=== PATIENT | female | born 1945 | race Caucasian/White ===

== ENCOUNTER 2024-10-20 11:02 | Inpatient (IN) | payer MEDICARE, OTHER ==
[~2024-10-20] VITALS: Ht 167.6 cm; Wt 59.1 kg
[2024-10-20] MEDS ORDERED: NS 1,000 ML IV SCH ×3 (11:15→18:55)
[2024-10-20] MEDS ORDERED: FentaNYL Citrate 50 MCG/ML 2 ML Injection IV PRN ×2 (11:15→18:55)
[2024-10-20] MEDS ORDERED: HYDROmorphone HCl/Pf 1MG SYR IV ONE (12:10)
[2024-10-20] MEDS ORDERED: HYDROmorphone HCl/Pf 1MG SYR IV PRN (15:30)
[2024-10-20] MEDS ORDERED: Ondansetron HCl 2 MG / ML 2ML Vial IV PRN ×2 (16:25→18:55)
[2024-10-20] MEDS ORDERED: Acetaminophen 500 MG Tab PO ONE (16:25)
[2024-10-20 16:53] LABS: BASOPHILS ABSOLUTE AUTO 0.05 K/mm3 (0.00-0.23); BASOPHILS PERCENT AUTO 1 % (0-2); EOSINOPHILS ABSOLUTE AUTO 0.01 K/mm3 (0.00-0.68); EOSINOPHILS PERCENT AUTO 0 % (0-6); Hematocrit 27.4 % (33.0-51.0); Hemoglobin 8.5 g/dL (11.5-16.0); IMMATURE GRAN ABSOLUTE AUTO 0.03 K/mm3 (0.00-0.10); IMMATURE GRAN PERCENT AUTO 0 % (0-1); LYMPHOCYTES PERCENT AUTO 14 % (21-46); MONOCYTES ABSOLUTE AUTO 0.76 K/mm3 (0.16-1.47); MONOCYTES PERCENT AUTO 7 % (4-13); Mean Corpuscular HGB 25.2 pg (26.0-34.0); Mean Corpuscular Volume 81 fL (80-100); Mean Platelet Volume 9.1 fL (9.1-12.4); NEUTROPHILS ABSOLUTE AUTO 8.41 K/mm3 (1.96-9.15); NEUTROPHILS PERCENT AUTO 78 % (41-73); Platelet Count 343 K/mm3 (150-400); RDW Coefficient Variation 16.9 % (11.7-14.2); RDW Standard Deviation 49.1 fL (35.1-46.3); Red Blood Cell Count 3.37 M/mm3 (3.80-5.20); White Blood Cell Count 10.76 K/mm3 (4.00-11.30)
[2024-10-20 17:18] LABS: Albumin, Blood 2.5 g/dL (3.4-5.0); Albumin/Globulin Ratio 0.6 (0.8-1.8); Bilirubin, Total 0.6 mg/dL (0.1-1.0); Bun/Creatinine Ratio 20.3 (12.0-20.0); Calcium, Blood 8.1 mg/dL (8.5-10.1); Creatinine, Blood 0.64 mg/dL (0.40-1.00); Globulin, Blood 4.3 g/dL (2.2-4.0); Potassium, Blood 4.3 mmol/L (3.5-5.5); Total Protein, Blood 6.8 g/dL (6.4-8.2)
[2024-10-20] MEDS ORDERED: Metoclopramide HCl 5MG / ML 2ML Vial IV PRN (18:55)
[2024-10-20] MEDS ORDERED: OxyCODONE HCL 5 MG TAB PO PRN (18:55)
[2024-10-20] MEDS ORDERED: Acetaminophen 500 MG Tab PO PRN (18:55)
[2024-10-20 19:15] LABS: Source, Urine Foley catheter
[2024-10-20 19:22] LABS: Appearance, Urine Hazy (Clear); Bilirubin, Urine Neg (Neg); Blood, Urine Neg (Neg); Color, Urine Yellow (P-Yellow); Glucose Qualitative, Urine Neg (Neg); Ketones, Urine 2+ (Neg); Leukocyte Esterase, Urine 1+ (Neg); Nitrite, Urine Pos (Neg); Protein, Urine 1+ (Neg); Urobilinogen, Urine NORM (Normal)
[2024-10-20 19:29] LABS: Bacteria Many /hpf; Red Blood Cells, Urine 0-2 /hpf (0-2); Squamous Epithelial Cells Rare /hpf (Few)
[2024-10-20 20:03] LABS: BASOPHILS ABSOLUTE AUTO 0.08 K/mm3 (0.00-0.23); BASOPHILS PERCENT AUTO 1 % (0-2); EOSINOPHILS ABSOLUTE AUTO 0.01 K/mm3 (0.00-0.68); EOSINOPHILS PERCENT AUTO 0 % (0-6); Hematocrit 24.9 % (33.0-51.0); IMMATURE GRAN ABSOLUTE AUTO 0.08 K/mm3 (0.00-0.10); IMMATURE GRAN PERCENT AUTO 1 % (0-1); LYMPHOCYTES ABSOLUTE AUTO 0.92 K/mm3 (0.84-5.20); LYMPHOCYTES PERCENT AUTO 7 % (21-46); MONOCYTES ABSOLUTE AUTO 0.76 K/mm3 (0.16-1.47); MONOCYTES PERCENT AUTO 6 % (4-13); Mean Corpuscular HGB 25.6 pg (26.0-34.0); Mean Corpuscular HGB Conc 32.1 g/dL (31.5-36.5); Mean Corpuscular Volume 80 fL (80-100); NEUTROPHILS ABSOLUTE AUTO 10.71 K/mm3 (1.96-9.15); NEUTROPHILS PERCENT AUTO 85 % (41-73); NRBC ABSOLUTE 0.03 K/mm3 (0.00-0.02); NRBC Auto 0.2 /100 WBC (0.0-0.2); RDW Coefficient Variation 16.7 % (11.7-14.2); RDW Standard Deviation 47.9 fL (35.1-46.3); Red Blood Cell Count 3.13 M/mm3 (3.80-5.20); White Blood Cell Count 12.56 K/mm3 (4.00-11.30)
[2024-10-20 20:23] LABS: Platelet Count 313 K/mm3 (150-400)
[2024-10-20 20:27] VITALS: BP 131/91
[2024-10-20] MEDS ORDERED: Sennosides 8.6 MG Tab PO SCH (21:00)
[2024-10-20] MEDS ORDERED: Docusate Sodium 100 MG Cap PO SCH (21:00)
[2024-10-21] VITALS (20 sets, daily range): BP systolic 96–141; BP diastolic 62–91
[2024-10-21 02:12] LABS: Hematocrit 25.8 % (33.0-51.0)
--- NOTE | 2024-10-21 05:19 | NUR ---
NOC SUMMARY- PT ARRIVED TO ROOM IN DISCOMFORT. PT TRANSFERED TO BED. PT MEDICATED PER SEP WITH RELIEF. PT ALSO REPORTS NAUSEA WITH RELIEF FROM [facility]. PRINT JOURNALIST REPORTED NUMEROUS EPISODES SHORT PERIODS OF SVT. DR GOLDEN CALLED AND HE ORDERED HGB AND TROPOINS WITH A EKG. HGB REMAINED 8.0 AND TROPS WERE WNL. DR GOLDEN WAS CALLED AND INFORMED OF RESULTS. PROVIDER NOTIFIED OF PT SHORT EZEQUIEL OF SVT FROM 100'S - 140'S. RATE NEVER SUSTAINED ABOVE 130. PROVIDER STATED HE WAS NOT GOING TO ORDER ANYTHING FOR RATE DUE TO PT BEING SINUS. EKG RESULTS SHOWED ST@ 130 WITH PVC'S. PT PAIN AND NAUSEA RESOLVED WITH TX PER SEP. PT MIGUEL DRAINING WELL TO GRAVITY. THIS AM DR AVILES ORDERED PT TO BE NPO IN CASE SHE WENT TO SURGERY. PT CURRENTLY RESTING QUIETLY AND IN NO DISTRESS. CALL LIGHT IN REACH.
--- NOTE | 2024-10-21 08:13 | NUR ---
THIS RN CALLED DR. NORMAN ABOUT PAIN MEDICATIONS D/T 05/06 RIGHT HIP PAIN. PT IS UNABLE TO TOLERATE ORAL MEDICATIONS WITHOUT CRUSHED IN PUDDING. SHE IS NPO FOR PROCEDURE TODAY AND UNABLE TO TAKE PAIN MEDICATIONS ORALLY. DR. NORMAN STATED HE WILL BE ADDING ADDITIONAL IV MEDICATIONS. DR. GONZALEZ AT BEDSIDE CONSENTING THE PT FOR PROCEDURE THIS AFTERNOON. SEE NOTES FOR UDPATES.
[2024-10-21] MEDS ORDERED: HYDROmorphone HCl/Pf 1MG SYR IV PRN ×4 (08:15→15:50)
[2024-10-21 08:35] LABS: BASOPHILS ABSOLUTE AUTO 0.05 K/mm3 (0.00-0.23); BASOPHILS PERCENT AUTO 0 % (0-2); EOSINOPHILS ABSOLUTE AUTO 0.01 K/mm3 (0.00-0.68); EOSINOPHILS PERCENT AUTO 0 % (0-6); Hematocrit 23.4 % (33.0-51.0); Hemoglobin 7.1 g/dL (11.5-16.0); IMMATURE GRAN ABSOLUTE AUTO 0.04 K/mm3 (0.00-0.10); IMMATURE GRAN PERCENT AUTO 0 % (0-1); LYMPHOCYTES ABSOLUTE AUTO 1.53 K/mm3 (0.84-5.20); LYMPHOCYTES PERCENT AUTO 13 % (21-46); MONOCYTES PERCENT AUTO 8 % (4-13); Mean Corpuscular HGB Conc 30.3 g/dL (31.5-36.5); Mean Corpuscular Volume 82 fL (80-100); Mean Platelet Volume 8.7 fL (9.1-12.4); NEUTROPHILS ABSOLUTE AUTO 9.38 K/mm3 (1.96-9.15); NEUTROPHILS PERCENT AUTO 79 % (41-73); Platelet Count 282 K/mm3 (150-400); RDW Standard Deviation 50.5 fL (35.1-46.3); Red Blood Cell Count 2.84 M/mm3 (3.80-5.20); White Blood Cell Count 11.91 K/mm3 (4.00-11.30)
[2024-10-21 08:48] LABS: International Normalized Ratio 1.06; Prothrombin Time Results 11.3 Sec (9.7-11.5)
[2024-10-21] MEDS ORDERED: Ropivacaine 0.5% HCl/Pf 123.125 MG,EPINEPHrine HCL 0.25 MG,Ketorolac Tromethamine 15 MG... INFIL SCH (08:50)
[2024-10-21] MEDS ORDERED: CeFAZolin Sodium 2,000 MG in NS 100 ML IV SCH ×2 (08:50→22:00)
[2024-10-21] MEDS ORDERED: Tranexamic Acid 100 ML IV SCH (08:50)
[2024-10-21] MEDS ORDERED: Vancomycin HCL 1,000 MG in NS 250 ML IV SCH (08:50)
[2024-10-21 09:00] LABS: Albumin, Blood 2.3 g/dL (3.4-5.0); Albumin/Globulin Ratio 0.6 (0.8-1.8); Bilirubin, Total 0.5 mg/dL (0.1-1.0); Bun/Creatinine Ratio 28.6 (12.0-20.0); Calcium, Blood 7.5 mg/dL (8.5-10.1); Creatinine, Blood 0.6 mg/dL (0.40-1.00); Globulin, Blood 3.7 g/dL (2.2-4.0); Magnesium, Blood 1.6 mg/dL (1.6-2.4); Potassium, Blood 3.9 mmol/L (3.5-5.5)
[2024-10-21] MEDS ORDERED: NS 500 ML IV SCH (09:15)
[2024-10-21] MEDS ORDERED: FentaNYL Citrate 50 MCG/ML 2 ML Injection ONE (12:12)
[2024-10-21] MEDS ORDERED: propofoL 20 ML IV ONE (12:12)
[2024-10-21] MEDS ORDERED: Sugammadex Sodium 200 MG/2ML SDV (100 MG/ML) ONE (12:12)
[2024-10-21] MEDS ORDERED: Rocuronium Bromide 10 MG/ML 5ML Injection IV ONE (12:13)
[2024-10-21] MEDS ORDERED: Ondansetron HCl 2 MG / ML 2ML Vial ONE (12:13)
[2024-10-21] MEDS ORDERED: Dexamethasone Sod Phos 10 MG/ML 1ML VIAL ONE (12:13)
[2024-10-21] MEDS ORDERED: Lidocaine HCl 2% 20 ML MDV ONE (12:13)
[2024-10-21] MEDS ORDERED: Phenylephrine HCl 100 MCG/ML-NS 10MLSYR (1MG/10ML) ONE (12:18)
[2024-10-21] MEDS ORDERED: Lactated Ringer's 1,000 ML IV SCH (12:25)
[2024-10-21] MEDS ORDERED: Vancomycin HCl 1000 MG ADDvantage ONE (12:38)
[2024-10-21] MEDS ORDERED: CeFAZolin Sodium 2,000 MG VIAL ONE (12:43)
--- NOTE | 2024-10-21 13:49 | NUR ---
MORNING SUMMARY THE PT IS A&OX4, BEDREST, AND WENT TO RIGHT FEMUR REPAIR AROUND 1200 THIS AFTERNOON. HER HGB WAS TRENDING DOWN, AND DR. LUKE ORDERED 1UNIT PRBC BEFORE PROCEDURE. IT WAS STARTED IN THE ROOM ADN AFTER THE FIRST 15 MINUTES SHE WAS TAKEN TO THE OR. THIS RN LET TELE KNOW OF THE TRANSFER OF UNITS AND INFUSION OF BLOOD PRODUCTS. THE PT'S PAIN WAS 9/10-10/10 THIS MORNING AND DILAUDID WAS ORDERED AND 1MG WAS GIVEN. PAIN WAS MANAGED THE REST OF THE MORNING. THE PT IS ST ON TELE 100'S AND SHE HAS ONE RUN OF SVT REPORTED FROM [facility]. THIS IS AN ONGOING EVENT. EKG'S DONE PREVIOUS SHIFT. THE PT HAS DENIED ANY ANGINA OR CHEST PRESSURE AND BP IS STABLE. SHE HAS BEEN ON RA AND DENIES ANY SOB. PT STILL IN THE OR AND REPORT WAS HANDED OFF THE LEE RN. NO FURTHER NOTED FROM THIS RN.
[2024-10-21] MEDS ORDERED: Ondansetron HCl 2 MG / ML 2ML Vial IV PRN ×2 (14:00→15:45)
[2024-10-21] MEDS ORDERED: HYDROmorphone HCl/Pf 1MG SYR ONE (14:00)
[2024-10-21] MEDS ORDERED: Labetalol HCL 5 MG/ML 4ML Injection (Single Dose) IV PRN (14:05)
[2024-10-21] MEDS ORDERED: FentaNYL Citrate 50 MCG/ML 2 ML Injection IV PRN ×2 (14:05)
[2024-10-21] MEDS ORDERED: FLU VACC TS2024-25(6MOS UP)/PF 45 MCG/0.5 ML SYRINGE IM ONE (15:45)
[2024-10-21] MEDS ORDERED: Naloxone HCl 0.4MG / ML 1ML Vial IV PRN (15:45)
[2024-10-21] MEDS ORDERED: NS KCl 20mEq 1,000 ML IV SCH (15:45)
[2024-10-21] MEDS ORDERED: Ondansetron 4 MG TAB PO PRN (15:45)
[2024-10-21] MEDS ORDERED: Bisacodyl 10 MG Supp PR PRN (15:45)
[2024-10-21] MEDS ORDERED: Acetaminophen 325 MG TABLET PO PRN (15:45)
[2024-10-21] MEDS ORDERED: Magnesium Hydroxide Conc 10 ML UDC PO PRN (15:50)
[2024-10-21] MEDS ORDERED: OxyCODONE HCL 5 MG TAB PO PRN (15:50)
--- NOTE | 2024-10-21 16:10 | NUR ---
POST OP NOTE/SHIFT SUMMARY PT ARRIVED TO ROOM 217 FROM PACU. PT IS RESPONSIVE, A/O X4, ABLE TO FOLLOW COMMANDS. REPORTS PAIN IS TOLERABLE AT THIS TIME. 4LNC IN PLACE W/ O2 SATS >93%. PT ENCOURAGED TO DB&C. LLE WRAPPED W/ KHAI, C/D/I, CAP REFILL IN L TOES 2 SECS. PT ABLE TO WIGGLE TOES ON COMMAND. SCDS IN PLACE. VSS. CALL LIGHT IN REACH.
[2024-10-21] MEDS ORDERED: Docusate Sodium 100 MG Cap PO SCH (21:00)
[2024-10-21 22:01] LABS: Hematocrit 24.8 % (33.0-51.0)
[2024-10-21 22:29] LABS: Percent Saturation 84.9 % (15.0-50.0)
[2024-10-22] MEDS ORDERED: Vancomycin HCL 1,000 MG in NS 250 ML IV SCH (01:00)
[2024-10-22 04:16] VITALS: BP 111/74
--- NOTE | 2024-10-22 05:20 | NUR ---
SHIFT SUMMARY POD 1 R HIP ORIF. VSS, PT ON 1L O2 VIA NC, TELE IN USE. A&0 x3-4, PT INTERMITTENTLY CONFUSED POST-OP. TOLERATING ORALS. MIGUEL REMOVED, ATTENDS IN USE. PT REPORTS PAIN TOLERABLE, MEDICATED PER EMAR. KHAI WRAP TO RLE C/D/I, POLAR PACK IN USE. TTWB ON RLE. IV FLUIDS/ABX INFUSING PER EMAR. CALL LIGHT IN REACH, BED IN LOWEST POSITION, WILL REPORT TO DAY RN.
[2024-10-22 06:32] LABS: BASOPHILS ABSOLUTE AUTO 0.02 K/mm3 (0.00-0.23); BASOPHILS PERCENT AUTO 0 % (0-2); EOSINOPHILS PERCENT AUTO 0 % (0-6); Hematocrit 25.5 % (33.0-51.0); Hemoglobin 8.3 g/dL (11.5-16.0); IMMATURE GRAN ABSOLUTE AUTO 0.08 K/mm3 (0.00-0.10); IMMATURE GRAN PERCENT AUTO 1 % (0-1); LYMPHOCYTES ABSOLUTE AUTO 0.81 K/mm3 (0.84-5.20); LYMPHOCYTES PERCENT AUTO 5 % (21-46); MONOCYTES ABSOLUTE AUTO 0.75 K/mm3 (0.16-1.47); MONOCYTES PERCENT AUTO 5 % (4-13); Mean Corpuscular HGB 26.8 pg (26.0-34.0); Mean Corpuscular HGB Conc 32.5 g/dL (31.5-36.5); Mean Corpuscular Volume 82 fL (80-100); Mean Platelet Volume 9.2 fL (9.1-12.4); NEUTROPHILS ABSOLUTE AUTO 13.21 K/mm3 (1.96-9.15); NEUTROPHILS PERCENT AUTO 89 % (41-73); Platelet Count 244 K/mm3 (150-400); RDW Coefficient Variation 16.3 % (11.7-14.2); RDW Standard Deviation 48.8 fL (35.1-46.3); White Blood Cell Count 14.87 K/mm3 (4.00-11.30)
[2024-10-22 06:52] LABS: Magnesium, Blood 1.8 mg/dL (1.6-2.4)
[2024-10-22 06:53] LABS: Bun/Creatinine Ratio 22.8 (12.0-20.0); Calcium, Blood 7.6 mg/dL (8.5-10.1); Creatinine, Blood 0.53 mg/dL (0.40-1.00); Potassium, Blood 4.1 mmol/L (3.5-5.5)
[2024-10-22 07:44] VITALS: BP 117/69
--- NOTE | 2024-10-22 13:24 | NUR ---
AFTERNOON SUMMARY S/P R FEMUR ORIF. PT WORKED WITH THERAPY THIS MORNING AND WAS ABLE TO DANGLE AT THE SIDE OF THE BED. NOT ABLE TO STAND YET. 1-2 PEOPLE ASSIST TO GET PT BACK AND REPOSITIONED INTO HER BED. RLE STRAIGHTENED OUT AND POSITIONED ON PILLOW. KHAI WRAP REMAINS CDI. PT RECEIVING 1 ROXICODONE FOR PAIN CONTROL. NICOLETTE REG DIET. HAS NOT VOIDED YET, BUT BLADDER SCANNING PRN. PLAN IS TO CONT TO MOBILIZE TOLERATED. USES CALL LIGHT APPROPRIATELY.
--- NOTE | 2024-10-22 14:15 | NUR ---
ASSUMED CARE ASSUMED CARE OF THE PATIENT AT THIS TIME, PT RESTING IN BED, RLE JUST REPOSITIONED BY PRIOR DAY RN. PT DENIES ANY NEEDS AT THIS TIME. STILL AWAITING POST MIGUEL REMOVAL VOID, BLADDER SCAN PERFORMED PRIOR TO ASSUMPTION OF CARE (SEE BLADDER MANAGEMENT DOCUMENTATION). NO ACUTE CONCERNS AT THIS TIME.
[2024-10-22 15:05] VITALS: BP 138/86
[2024-10-22] MEDS ORDERED: Enoxaparin 30 MG/0.3 ML SYR SC SCH (19:00)
[2024-10-22 20:07] VITALS: BP 139/89
[2024-10-22 22:37] VITALS: BP 130/48
--- NOTE | 2024-10-23 04:30 | NUR ---
SHIFT SUMMARY VALENTIN WAS ALERT AND FULLY ORIENTED ON ASSESSMENT. PT HAVING MULTIPLE LOOSE BM'S TONIGHT. PT DRESSING TO RLE C/D/I. CIRCULATION AND SENSATION TO FEET IS INTACT. PT C/O HIGH PAIN RATING, HOWEVER SHE IS GETTING RELIEF FROM PAIN MEDS. NO ACUTE EVENTS TONIGHT.
[2024-10-23 04:46] VITALS: BP 127/72
[2024-10-23 07:25] VITALS: BP 106/73
[2024-10-23 16:00] VITALS: BP 131/88
--- NOTE | 2024-10-23 16:00 | NUR ---
ASSUMED CARE OF PATIENT AT THIS TIME.
--- NOTE | 2024-10-23 16:07 | NUR ---
SUMMARY/TRANSFER OF CARE PT IS A/OX4, REFUSED TO GET UP THIS AM BUT IS NOW WILLING TO GET OOB THIS EVENING. TOLERATING REG DIET, FLUIDS ENCOURAGED. VOIDING, PURWICK AND ATTENDS IN PLACE. R HIP DRESSING C/D/I, PT CAN WIGGLE R TOES ON COMMAND. PAS IN PLACE. VSS. CALL LIGHT IN REACH.
--- NOTE | 2024-10-23 17:55 | NUR ---
PT HAS BEEN STABLE SINCE THIS RN ASSUMED CARE AT 1600. PT UP TO CHAIR WITH 2 PERSON ASSIST. FREQUENT REMINDERS TO MAINTAIN TTWB STATUS. PT ANXIOUS WITH TRANSFERING. DRESSING CDI. ABLE TO WEAN FROM O2 WHEN OOB. SATS 95% ON RA. ENCOURAGED TCDB. PT STATES PAIN MANAGED PRN. ATTENDS IN PLACE AND JOHNATHON DC'D SINCE PT OOB TO CHAIR. DAUGHTER AT BEDSIDE, ATTENTIVE. PLAN FOR H/H VS SNF AT DISCHARGE.
[2024-10-23 19:25] VITALS: BP 130/79
[2024-10-24] VITALS (8 sets, daily range): BP systolic 110–138; BP diastolic 61–93
[2024-10-24 03:56] LABS: BASOPHILS ABSOLUTE AUTO 0.09 K/mm3 (0.00-0.23); BASOPHILS PERCENT AUTO 1 % (0-2); EOSINOPHILS ABSOLUTE AUTO 0.13 K/mm3 (0.00-0.68); EOSINOPHILS PERCENT AUTO 1 % (0-6); Hematocrit 25.7 % (33.0-51.0); Hemoglobin 8.3 g/dL (11.5-16.0); IMMATURE GRAN ABSOLUTE AUTO 0.06 K/mm3 (0.00-0.10); IMMATURE GRAN PERCENT AUTO 1 % (0-1); LYMPHOCYTES PERCENT AUTO 13 % (21-46); MONOCYTES ABSOLUTE AUTO 1.11 K/mm3 (0.16-1.47); MONOCYTES PERCENT AUTO 9 % (4-13); Mean Corpuscular HGB Conc 32.3 g/dL (31.5-36.5); Mean Corpuscular Volume 84 fL (80-100); Mean Platelet Volume 8.7 fL (9.1-12.4); NEUTROPHILS ABSOLUTE AUTO 9.88 K/mm3 (1.96-9.15); NEUTROPHILS PERCENT AUTO 76 % (41-73); Platelet Count 296 K/mm3 (150-400); RDW Coefficient Variation 17.7 % (11.7-14.2); RDW Standard Deviation 50.6 fL (35.1-46.3); Red Blood Cell Count 3.07 M/mm3 (3.80-5.20); White Blood Cell Count 12.97 K/mm3 (4.00-11.30)
[2024-10-24 04:23] LABS: Bun/Creatinine Ratio 14.7 (12.0-20.0); Calcium, Blood 7.4 mg/dL (8.5-10.1); Creatinine, Blood 0.55 mg/dL (0.40-1.00); Potassium, Blood 3.7 mmol/L (3.5-5.5)
--- NOTE | 2024-10-24 06:15 | NUR ---
SHIFT SUMMARY PT HAS RESTED MOST OF THE NIGHT. PT WAS IN RECLINER AT SHIFT CHANGED, AND WAS ASSISTED BACK TO BED WITH TWO PEOPLE. STAND PIVOT. PT IS VERY WEAK, HESISTANT TO AMBULATE AND REQUIRES FREQUENT VERBAL CUES. PAIN MANANGED WITH MEDS PER EMAR. IV ANTIBIOTICS PER ORDERS. VITALS STABLE. PLAN OF CARE UNCHANGED. BED IN LOWEST POSITION, CALL LIGHT WITHIN REACH.
[2024-10-24] MEDS ORDERED: Aspirin 325 MG Tab PO ONE ×2 (13:00→13:35)
[2024-10-24] MEDS ORDERED: Clopidogrel Bisulfate 75 MG Tab PO ONE ×2 (13:00→13:35)
[2024-10-24] MEDS ORDERED: Metoprolol Tartrate 25 MG Tab PO SCH (16:10)
--- NOTE | 2024-10-24 18:23 | NUR ---
PATIENT IS ALERT AND ORIENTED AND COOPERATIVE WITH CARE. PT REPORTED AN INCREASE IN RUE WEAKNESS AND NUMBNESS. DR. NORMAN NOTIFIED AND ORDERS GIVEN TO R/O CVA. EKG SHOWED ST WITH PAC'S WITH A RATE IN THE 130'S. TELE ORDERED AND PLACED. HER HR CONTINUED TO RISE THROUGHOUT THE AFTERNOON, TOUCHING 170 BPM WITH AN AVERAGE IN THE 140'S BPM. DR. NORMAN NOTIFIED AND ORDERS GIVEN TO TREAT WITH METOPROLOL PO. HER LATEST RHYTHM IS ST WITH PAC'S WITH A RATE OF 101 BPM. PAIN MANAGED PER EMAR. PATIENT DID NOT GET OOB OR WORK WITH PT TODAY BECAUSE OF HER HEART RATE AND SYMTOMS. THE PATIENT'S DAUGHTER WAS ABLE TO SPEAK WITH THE HEAD TRIMMER AT THE BEDSIDE AND GET AN UPDATE FROM DR. NORMAN. THERE WAS A POSSIBILTY OF DISCHARGING TO SNF TODAY BEFORE REPORTS OF INCREASED RUE WEAKNESS. THIS HAS RESOLVED SOME, THE PATIENT IS ABLE TO LIFT HER ARM OFF THE BED WHEREAS WHEN SHE NOTIFIED THE RN INITALLY SHE COULD ONLY WIGGLE HER FINGERS AND WAS UNABLE TO LIFT HER RUE OFF THE BED. ON RA. WILL CONTINUE TO MONITOR.
[2024-10-25] VITALS (14 sets, daily range): BP systolic 114–135; BP diastolic 67–88
--- NOTE | 2024-10-25 00:23 | NUR ---
DOCTOR COMMUNICATION CALL PLACED TO HOSPITALIST R/T PT C/O DIFFICULTY SWALLOWING. WHEN ASKED TO ELABORATE, PT REPORTS HER THROAT IS PAINFUL AND HER SPIT IS GETTING "STUCK" IN HER THROAT. PT ABLE TO CLEAR THROAT BUT HER EFFORT IS WEAK. PT ENDORSES THIS IS NEW ONSET. NO FACIAL DROOP NOTED DURING ASSESSMENT, R ARM NOTED TO BE WEAKER THAN PREVIOUS ASSESSMENT. NO NEW ORDERS RECIEVED AT THIS TIME. DR. GOLDEN ASKED FOR AN IMMEDIATE PHONE CALL IF THE PATIENT CONDITION CHANGED. TELE READS 90-100'S.
--- NOTE | 2024-10-25 04:47 | NUR ---
INFUSION RN PLEASE SEE INFUSION RN INTERVENTION FOR THIS RN'S NOTE. REPORT GIVEN TO MEHDI IN ICU. FAMILY CALLED, BOTH DAUGHTERS NOTIFIED.
--- NOTE | 2024-10-25 05:45 | NUR ---
ASSUMPTION OF CARE PT ARRIVED TO UNIT AT [address] SCAN. 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 ON ARRIVAL PT WAS NONVERBAL BUT DID NOD YES OR NO APPROPRIATELY. PUPILS UNEQUAL, RIGHT IS 4 ROUND AND SLUGGISH, LEFT IS 3 ROUND AND SLUGGISH. DEVIATED GAZE TO THE LEFT. LEFT FACIAL DROOP. CAN MAKE EYE CONTACT BUT CANNOT TRACK. RUE FLACCID, RLE FLACCID BUT DOES FLEX WHEN BOTTOM OF FOOT IS TOUCHED. LUE CAN BE MOVED AGAINST GRAVITY BUT DRIFTS AFTER 2-5 SECONDS. LLE CAN BE LIFTED BUT NOT KEPT UP. PT ON 3LNC, DAMIEN CARE DONE AND NEW PUREWICK IN PLACE. [facility] CONTACTED ABOUT TRANSFER, THEY WILL ACCEPT. [facility] NEURO PERIODICALS CLERK (DIANDRA) CALLED FOR REPORT AT 0541. DR GOLDEN TOLD ME THAT THE PT NEEDED TO BE HEAD DOWN SO PT PLACED IN MILD REVERSE [place]. PT KEPT INFORMED ABOUT ALL PROGRESS TO CARE, NODS IN UNDERSTANDING.
[2024-10-25 05:54] LABS: BASOPHILS ABSOLUTE AUTO 0.06 K/mm3 (0.00-0.23); BASOPHILS PERCENT AUTO 0 % (0-2); EOSINOPHILS ABSOLUTE AUTO 0.08 K/mm3 (0.00-0.68); EOSINOPHILS PERCENT AUTO 1 % (0-6); Hematocrit 28.5 % (33.0-51.0); Hemoglobin 8.7 g/dL (11.5-16.0); IMMATURE GRAN ABSOLUTE AUTO 0.04 K/mm3 (0.00-0.10); IMMATURE GRAN PERCENT AUTO 0 % (0-1); LYMPHOCYTES ABSOLUTE AUTO 1.73 K/mm3 (0.84-5.20); LYMPHOCYTES PERCENT AUTO 13 % (21-46); MONOCYTES ABSOLUTE AUTO 1.31 K/mm3 (0.16-1.47); MONOCYTES PERCENT AUTO 10 % (4-13); Mean Corpuscular HGB 26.1 pg (26.0-34.0); Mean Corpuscular HGB Conc 30.5 g/dL (31.5-36.5); Mean Corpuscular Volume 86 fL (80-100); Mean Platelet Volume 8.7 fL (9.1-12.4); NEUTROPHILS ABSOLUTE AUTO 10.43 K/mm3 (1.96-9.15); NEUTROPHILS PERCENT AUTO 76 % (41-73); Platelet Count 309 K/mm3 (150-400); RDW Coefficient Variation 18.3 % (11.7-14.2); RDW Standard Deviation 53.7 fL (35.1-46.3); Red Blood Cell Count 3.33 M/mm3 (3.80-5.20); White Blood Cell Count 13.65 K/mm3 (4.00-11.30)
[2024-10-25 06:24] LABS: Alanine Aminotransfer (ALT/SGP <6 U/L (12-78); Albumin, Blood 1.8 g/dL (3.4-5.0); Albumin/Globulin Ratio 0.5 (0.8-1.8); Alk Phos 93 U/L (50-136); Anion Gap 11 mmol/L (3-11); Aspartate Aminotrans (AST/SGOT 27 U/L (12-37); Bilirubin, Total 0.5 mg/dL (0.1-1.0); Blood Urea Nitrogen 8 mg/dL (8-24); Bun/Creatinine Ratio 14.7 (12.0-20.0); CO2, Blood 22 mmol/L (21-32); Calcium, Blood 7.5 mg/dL (8.5-10.1); Chloride, Blood 107 mmol/L (98-108); Creatinine, Blood 0.54 mg/dL (0.40-1.00); Globulin, Blood 3.8 g/dL (2.2-4.0); Glomerular Filtration Rate 92 (60-); Glucose, Blood 108 mg/dL (70-99); Potassium, Blood 3.6 mmol/L (3.5-5.5); Sodium, Blood 136 mmol/L (136-145); Total Protein, Blood 5.6 g/dL (6.4-8.2)
--- NOTE | 2024-10-25 06:49 | NUR ---
TRANSFER OF CARE PT EN ROUTE TO [facility]. REPORT GIVEN TO LENY HENNING.
[2024-10-25] MEDS ORDERED: Clopidogrel Bisulfate 75 MG Tab PO SCH (09:00)
[2024-10-25] MEDS ORDERED: Aspirin 325 MG Tab PO SCH (09:00)
== END 2024-10-25 06:40 | disposition short-term general hospital (02) | DRG 956 ==
LOC: ER 11:02 → SURS 18:51 → ICUE 20:00 → SURS 20:00 → ICUE 10-25 04:22
PROVIDERS: Internal Medicine; Nurse Practitioner Acute Care; Orthopaedic Surgery; Student in an Organized Health Care Education/Training Program; ADMIT Internal Medicine
PROC: 30233N1 Transfusion of Nonautologous Red Blood Cells into Peripheral Vein, Percutaneous Approach (ICD-10-PCS; 2024-10-21)
PROC: 0QS604Z Reposition Right Upper Femur with Internal Fixation Device, Open Approach (ICD-10-PCS; principal; 2024-10-21 12:30)
DX: S72.21XA Displaced subtrochanteric fracture of right femur, initial encounter for closed fracture (principal); S32.511A Fracture of superior rim of right pubis, initial encounter for closed fracture; I63.9 Cerebral infarction, unspecified; M97.01XA Periprosthetic fracture around internal prosthetic right hip joint, initial encounter; I47.19 Other supraventricular tachycardia; E44.0 Moderate protein-calorie malnutrition; Z68.1 Body mass index [BMI] 19.9 or less, adult; S72.141A Displaced intertrochanteric fracture of right femur, initial encounter for closed fracture; G83.21 Monoplegia of upper limb affecting right dominant side; J44.9 Chronic obstructive pulmonary disease, unspecified; W01.0XXA Fall on same level from slipping, tripping and stumbling without subsequent striking against object, initial encounter; Y92.009 Unspecified place in unspecified non-institutional (private) residence as the place of occurrence of the external cause; D64.9 Anemia, unspecified; Z87.891 Personal history of nicotine dependence
CPT/HCPCS: 36415; 36430; 51702; 70450; 70496; 70498; 73502; 73552; 73700; 73706; 80048; 80053; 81001; 82728; 82947; 83540; 83550; 83735; 84484; 85014; 85018; 85025; 85610; 86850; 86900; 86901; 86923; 87077; 87086; 87186; 93005; 93010; 94762; 96361; 96374-59; 96375-59; 96376-59; 97110; 97161; 97166; 97530; 99285-25; A9270; J0171; J0690; J0735; J1100; J1171; J1650; J1885; J2371; J2405; J2704; J2765; J2795; J3010; J3370; J3480; J7030; J7040; J7050; J7120; P9016; Q9967